=== PATIENT | female | born 1970 | race Caucasian/White ===

== ENCOUNTER 2018-12-12 17:14 | Inpatient (IN) | payer BC ==
[~2018-12-12] VITALS: Ht 162.6 cm; Wt 79.4 kg
[2018-12-12 20:30] VITALS: BP 155/89
--- NOTE | 2018-12-12 20:40 | NUR ---
Pt admitted during the noc with family at bedside, pt states feeling better at this time. Pt able to answer questions without complaints. Pt states some tingling in her hands. Pt states she has had this before and it is more group home. No further complaints noted. Will continue current plan of care.
[2018-12-12] MEDS: HYDROcodone/APAP 5/325MG 1 TAB TABLET PO PRN (22:06)
[2018-12-12 23:10] VITALS: BP 168/106
--- NOTE | 2018-12-13 | NUR ---
Pt called out and states having some dizziness, pt informed of possible complications and informed to not get up on her own and to get up slowly to help with her symptoms. After speaking to pt daughter came out and states pt still with complaints of dizziness and wants to know if there is any medication that she could take. Pt bp checked and pt with noted elevated bp, called Physician and informed of elevated bp and complaints of dizziness. Received ok orders for scheduled and prn medications. Pt informed and given medications. Pt states she is not used to taking medications and became emotional. Pt informed of possible complications of elevated bp and needing to take med to get bp down. Pt states she verbalizes understanding. Pt states she is not normally a sick person and does not understand what is going on. Pt informed of plan of care and verbalizes understanding.
[2018-12-13] MEDS: MECLIZINE HCL 12.5 MG TABLET. PO PRN ×2 (00:02→09:08)
[2018-12-13] MEDS: amLODIPine BESYLATE 5 MG TABLET PO SCH ×2 (00:02→09:07)
[2018-12-13 03:22] VITALS: BP 115/64
[2018-12-13 04:33] LABS: BASO % 0 % (0-3); EOS # 0.2 x10^3/uL (0.0-0.7); EOS % 2 % (0-3); HEMATOCRIT 39.2 % (36.0-47.0); HEMOGLOBIN 13.7 g/dL (12.0-15.5); LYMPH # 2.8 x10^3/uL (1.0-4.8); LYMPH % 40 % (24-48); MEAN CORPUSCULAR HEMOGLOBIN 31 pg (25-35); MEAN CORPUSCULAR HGB CONC 35 g/dL (31-37); MEAN CORPUSCULAR VOLUME 88 fL (79-100); MONO # 0.4 x10^3/uL (0.0-1.1); MONO % 6 % (0-9); NEUT # 3.5 x10^3/uL (1.8-7.7); NEUT % 51 % (31-73); PLATELET COUNT 221 x10^3/uL (140-400); RED BLOOD COUNT 4.45 x10^6/uL (3.50-5.40); RED CELL DISTRIBUTION WIDTH 12.9 % (11.5-14.5); WHITE BLOOD COUNT 6.9 x10^3/uL (4.0-11.0)
[2018-12-13 04:54] LABS: CALCIUM 8.9 mg/dL (8.5-10.1); CREATININE 0.8 mg/dL (0.6-1.0); GFR 76.9; POTASSIUM 3.7 mmol/L (3.5-5.1)
[2018-12-13 04:55] LABS: CHOLESTEROL/HDL RATIO 6.5
--- NOTE | 2018-12-13 05:48 | RAD ---
EXAM: CAROTID DOPPLER SONOGRAM. HISTORY: Dizziness, cerebrovascular accident. TECHNIQUE: Arteaga scale and color Doppler sonographic evaluation of the neck with spectral waveform analysis was performed and static images are submitted for review. FINDINGS: RIGHT: The peak systolic velocity within the common carotid artery is 58 cm/sec. The peak systolic velocity within the internal carotid artery is 59 cm/sec and the end diastolic velocity within the internal carotid artery is 35 cm/sec. The ICA/CCA ratio is 0.9. Grayscale images demonstrate no grayscale stenosis. LEFT: The peak systolic velocity within the common carotid artery is 63 cm/sec. The peak systolic velocity within the internal carotid artery is 82 cm/sec and the end diastolic velocity within the internal carotid artery is 40 cm/sec. The ICA/CCA ratio is 1.0. Grayscale images demonstrate no grayscale stenosis. There is antegrade flow within both vertebral arteries. IMPRESSION: 1. No evidence of hemodynamically significant stenosis. PQRS Compliance Statement - Stenosis calculations for CT, MR and conventional angiography are based upon measurement of the distal ICA diameter in accordance with the NASCET methodology. Stenosis calculations for carotid ultrasound studies are derived from validated velocity criteria which are known to correlate with the NASCET methodology. Electronically signed by: Mendy Perez MD (12/13/2018 5:45 AM) [facility]
[2018-12-13 07:00] VITALS: BP 125/65
[2018-12-13] MEDS ORDERED: ASPI-612 PO (07:31)
[2018-12-13] MEDS: HYDROcodone/APAP 5/325MG 1 TAB TABLET PO PRN (09:09)
[2018-12-13] MEDS ORDERED: ASPIRIN CHEWABLE 81 MG TABLET. PO SCH (09:30)
[2018-12-13] MEDS ORDERED: CONTRAST GIVEN. MC PRN (09:30)
[2018-12-13] MEDS ORDERED: IOHEXOL 300 MG/ML 100ML VIAL. IV ONE (09:30)
[2018-12-13 11:00] VITALS: BP 134/74
--- NOTE | 2018-12-13 11:43 | PDOC2 ---
NEUROLOGY CONSULT Date of Admission Date of Admission DATE: 12/13/18 TIME: 11:43 Reason for Consult Reason for Consult: Dizziness, possible stroke or transient ischemic attack Referring Physician Referring Physician: Dr. Kang Source Source: Chart review, Patient History of Present Illness History of Present Illness The patient is a 48-year-old right-handed female with 3 days of dizziness. She describes disequilibrium rather than true vertigo. She has not lost consciousness. She went to the [facility] emerged department last night where she was found to have hypertension, blood pressure of 170/100. She had CT of the head and neck soft tissues, essentially negative as reviewed below. In January of last year she [facility] for episode of tunnel vision, changing hearing, where she had MRI the brain, echocardiogram, and carotid Doppler studies. I saw the patient in the office on 04/07/18 and told her that most likely this was a migraine phenomenon. I told her that I would look over the records from [facility] and call her back. I did receive the records, and all testing was negative, and they also told her that this was migraine phenomenon versus hypertensive encephalopathy. The patient hung up on my medical device sales consultant when she told her this good news and did not return. Indeed, the patient does have a history of migraine headaches. She had a rather severe headache last night albeit related possibly to the hypertension. She is feeling better now. It was decided to transfer to this hospital from [facility] to obtain an MRI. Past Medical History Cardiovascular: HTN, Other (deep venous thrombosis) CENTRAL NERVOUS SYSTEM: Migraine GI: Constipation Psych: Anxiety, Depression Past Surgical History Past Surgical History: Cholecystectomy, Hysterectomy, Other (Thyroidectomy, parathyroidectomy, bladder suspension) Family History Family History: Cancer, Hypertension Social History Social History , no tobacco or alcohol Current Medications Current Medications Current Medications Acetaminophen/ Hydrocodone Bitart (Lortab 5/325) 1 tab PRN Q4HRS PRN PO MODERATE PAIN 4-6 Last administered on 12/13/18at 09:10; Start 12/12/18 at 21:30 Meclizine HCl (Antivert) 25 mg PRN Q6HRS PRN PO DIZZINESS Last administered on 12/13/18at 09:10; Start 12/13/18 at 00:00 Amlodipine Besylate (Norvasc) 5 mg DAILY PO Last administered on 12/13/18at 09:10; Start 12/13/18 at 00:00 Aspirin (Children'S Aspirin) 81 mg DAILYWBKFT PO Last administered on 12/13/18at 09:10; Start 12/13/18 at 09:30 Iohexol (Omnipaque 300 Mg/ml) 75 ml 1X ONCE IV Last administered on 12/13/18at 10:18; Start 12/13/18 at 09:30; Stop 12/13/18 at 10:02; Status DC Info (CONTRAST GIVEN -- Rx MONITORING) 1 each PRN DAILY PRN MC SEE COMMENTS; Start 12/13/18 at 09:30; Stop 12/15/18 at 09:29 Lorazepam (Ativan Inj) 1 mg 1X ONCE IV ; Start 12/13/18 at 13:00; Stop 12/13/18 at 13:01 Active Scripts Active Reported Aspirin Ec (Aspirin) 81 Mg Tablet. 1 Tab PO DAILY Allergies Allergies: Coded Allergies: No Known Drug Allergies (Unverified , 12/12/18) ROS Review of System Negative for fever, chills, weight loss, shortness of breath, chest pain, indigestion, hematochezia, melena, and dysuria. Full 14-point review of systems is negative. Physical Exam Physical Examination General: Well-developed, well-nourished white female in no acute distress HEENT: Normocephalic and�atraumatic. Tympanic membranes clear.�Temporal arteries�pulsatile and nontender.� Neck: Supple without bruit, no meningismus� Musculoskeletal: Stability:�see neurologic. Gait exam:�see neurologic. Tone:�see neurologic.�Strength:�see neurologic.� Neurological: Mental Status:�intact, orientation, memory, attention span/concentration, language, fund of knowledge normal. Cranial Nerves:�Pupils equal and reactive to light, extraocular movements are�intact, visual alejandre are full to confrontation. Facial sensation is normal. There is no facial asymmetry. Vestibulo-ocular reflex is intact. Palate elevates and tongue protrudes in midline. All other cranial related problems are negative except as mentioned before.�Reflexes:�2+ and symmetric with flexor plantar responses. Motor:�5/5 strength with normal tone and bulk. Coordination:�Finger-nose finger and qhxc-ns-mzyo testing are normal. Rapid alternating movements and fine finger movements are intact. Gait:�Normal, including tandem. Sensory:�Normal pinprick, vibration, light touch, proprioception.� Vitals VITALS Vital Signs Date Time Temp Pulse Resp B/P (MAP) Pulse Ox O2 Delivery O2 Flow Rate FiO2 12/13/18 11:17 20 100 Room Air 12/13/18 11:00 98.4 82 134/74 (94) 98.4 Labs Labs Laboratory Tests Test 12/13/18 03:55 White Blood Count 6.9 x10^3/uL (4.0-11.0) Red Blood Count 4.45 x10^6/uL (3.50-5.40) Hemoglobin 13.7 g/dL (12.0-15.5) Hematocrit 39.2 % (36.0-47.0) Mean Corpuscular Volume 88 fL (79-100) Mean Corpuscular Hemoglobin 31 pg (25-35) Mean Corpuscular Hemoglobin Concent 35 g/dL (31-37) Red Cell Distribution Width 12.9 % (11.5-14.5) Platelet Count 221 x10^3/uL (140-400) Neutrophils (%) (Auto) 51 % (31-73) Lymphocytes (%) (Auto) 40 % (24-48) Monocytes (%) (Auto) 6 % (0-9) Eosinophils (%) (Auto) 2 % (0-3) Basophils (%) (Auto) 0 % (0-3) Neutrophils # (Auto) 3.5 x10^3/uL (1.8-7.7) Lymphocytes # (Auto) 2.8 x10^3/uL (1.0-4.8) Monocytes # (Auto) 0.4 x10^3/uL (0.0-1.1) Eosinophils # (Auto) 0.2 x10^3/uL (0.0-0.7) Basophils # (Auto) 0.0 x10^3/uL (0.0-0.2) Sodium Level 142 mmol/L (136-145) Potassium Level 3.7 mmol/L (3.5-5.1) Chloride Level 105 mmol/L (98-107) Carbon Dioxide Level 27 mmol/L (21-32) Anion Gap 10 (6-14) Blood Urea Nitrogen 10 mg/dL (7-20) Creatinine 0.8 mg/dL (0.6-1.0) Estimated GFR (Cockcroft-Gault) 76.9 Glucose Level 97 mg/dL (70-99) Calcium Level 8.9 mg/dL (8.5-10.1) Triglycerides Level 344 mg/dL (0-150) Cholesterol Level 260 mg/dL (0-200) LDL Cholesterol, Calculated 151 mg/dL (0-100) VLDL Cholesterol, Calculated 69 mg/dL (0-40) Non-HDL Cholesterol Calculated 220 mg/dL (0-129) HDL Cholesterol 40 mg/dL (40-60) Cholesterol/HDL Ratio 6.5 Laboratory Tests Test 12/13/18 03:55 White Blood Count 6.9 x10^3/uL (4.0-11.0) Red Blood Count 4.45 x10^6/uL (3.50-5.40) Hemoglobin 13.7 g/dL (12.0-15.5) Hematocrit 39.2 % (36.0-47.0) Mean Corpuscular Volume 88 fL (79-100) Mean Corpuscular Hemoglobin 31 pg (25-35) Mean Corpuscular Hemoglobin Concent 35 g/dL (31-37) Red Cell Distribution Width 12.9 % (11.5-14.5) Platelet Count 221 x10^3/uL (140-400) Neutrophils (%) (Auto) 51 % (31-73) Lymphocytes (%) (Auto) 40 % (24-48) Monocytes (%) (Auto) 6 % (0-9) Eosinophils (%) (Auto) 2 % (0-3) Basophils (%) (Auto) 0 % (0-3) Neutrophils # (Auto) 3.5 x10^3/uL (1.8-7.7) Lymphocytes # (Auto) 2.8 x10^3/uL (1.0-4.8) Monocytes # (Auto) 0.4 x10^3/uL (0.0-1.1) Eosinophils # (Auto) 0.2 x10^3/uL (0.0-0.7) Basophils # (Auto) 0.0 x10^3/uL (0.0-0.2) Sodium Level 142 mmol/L (136-145) Potassium Level 3.7 mmol/L (3.5-5.1) Chloride Level 105 mmol/L (98-107) Carbon Dioxide Level 27 mmol/L (21-32) Anion Gap 10 (6-14) Blood Urea Nitrogen 10 mg/dL (7-20) Creatinine 0.8 mg/dL (0.6-1.0) Estimated GFR (Cockcroft-Gault) 76.9 Glucose Level 97 mg/dL (70-99) Calcium Level 8.9 mg/dL (8.5-10.1) Triglycerides Level 344 mg/dL (0-150) Cholesterol Level 260 mg/dL (0-200) LDL Cholesterol, Calculated 151 mg/dL (0-100) VLDL Cholesterol, Calculated 69 mg/dL (0-40) Non-HDL Cholesterol Calculated 220 mg/dL (0-129) HDL Cholesterol 40 mg/dL (40-60) Cholesterol/HDL Ratio 6.5 Images Images CAROTID DOPPLER SONOGRAM. HISTORY: Dizziness, cerebrovascular accident. TECHNIQUE: Arteaga scale and color Doppler sonographic evaluation of the neck with spectral waveform analysis was performed and static images are submitted for review. FINDINGS: RIGHT: The peak systolic velocity within the common carotid artery is 58 cm/sec. The peak systolic velocity within the internal carotid artery is 59 cm/sec and the end diastolic velocity within the internal carotid artery is 35 cm/sec. The ICA/CCA ratio is 0.9. Grayscale images demonstrate no grayscale stenosis. LEFT: The peak systolic velocity within the common carotid artery is 63 cm/sec. The peak systolic velocity within the internal carotid artery is 82 cm/sec and the end diastolic velocity within the internal carotid artery is 40 cm/sec. The ICA/CCA ratio is 1.0. Grayscale images demonstrate no grayscale stenosis. There is antegrade flow within both vertebral arteries. IMPRESSION: 1. No evidence of hemodynamically significant stenosis. [facility] Head CT without contrast. HISTORY: Weakness and dizziness. TECHNIQUE: Computed tomographic images of the head were obtained without contrast. *One or more of the following individualized dose reduction techniques were utilized for this examination: 1. Automated exposure control. 2. Adjustment of the mA and/or kV according to patient size. 3. Use of iterative reconstruction technique. COMPARISON: None. FINDINGS: There is no acute or subacute extra-axial or intraparenchymal hemorrhage. There is no mass effect or midline shift. There is no hydrocephalus. There is a possible tiny chronic lacunar infarct within the left caudate nucleus. The rzlr-[id number]-[id number] matter differentiation pattern is intact. The visualized portions of the orbits, paranasal sinuses and mastoid air cells are unremarkable. No suspicious calvarial lesion is seen. IMPRESSION: 1. No acute intracranial finding. Note is made that MRI is more sensitive for acute infarction. 2. Possible tiny chronic lacunar infarct within the left caudate nucleus. [facility] CT SOFT TISSUE NECK W/CONTRAST History: Fullness anterior neck. Fever. Technique: CT imaging was performed of the neck soft tissues with contrast. Coronal and sagittal reconstructions were performed. Contrast: 75 mL Omnipaque 300 IV contrast. Exposure: One or more of the following individualized dose reduction techniques were utilized for this examination: 1. Automated exposure control 2. Adjustment of the mA and/or kV according to patient size 3. Use of iterative reconstruction technique. Comparison: None Findings: Normal appearance of the bilateral submandibular and parotid glands. Prior right thyroidectomy. No pathologic lymphadenopathy. Punctate 2 mm left apical nodule (series 2 image #60), likely benign. Recommend comparison with prior imaging studies. If patient is high risk recommend one-year follow-up. Imaged paranasal sinuses and mastoid air cells are clear. Imaged orbits and intracranial contents are unremarkable. Impression: 1. No acute pathology within the neck soft tissues. 2. Prior right thyroidectomy. 3. Punctate left apical pulmonary nodule, as described. Assessment/Plan Assessment/Plan Impression: Nonspecific disequilibrium, no findings on neurological exam, she did not have a stroke, she didn't have a transient ischemic attack, we are left with the same differential diagnosis as from last year, most likely a combination of migraine and hypertensive encephalopathy. Recommendations: CT angiogram MRI of the brain, which I switched to a non-contrast study. Aspirin 81 mg daily Treatment of hypertension per internal medicine Aim for discharge later today. I discussed with patient, we could consider migraine prophylaxis, but these episodes are occurring somewhat rarely, so best to hold off Follow-up with me or other neurologist as needed. Thank you for letting me help the patient care. JOEL VELAZQUEZ MD Dec 13, 2018 11:43
--- NOTE | 2018-12-13 11:54 | RAD ---
PQRS Compliance statement: One or more of the following individualized dose reduction techniques were utilized for this examination: 1. Automated exposure control. 2. Adjustment of the mA and/or kV according to patient size. 3. Use of iterative reconstruction technique. Indication:TIA, dizziness, neck pain. TECHNIQUE: CT angiogram of the head and neck with IV contrast with multiplanar MIP reformats. 3-D volume rendered postprocessing was performed. COMPARISON: None FINDINGS: The bilateral A1 and A2 segments of the ALISHA are patent. Bilateral M1, M2, M3 segments of the MCA are patent. Bilateral P1, P2, P3 segments of the MORPHOLOGY TEACHER are patent. Bilateral superior cerebellar arteries are patent. Bilateral AICA are patent. Right PICA seen and is patent. Left PICA not seen likely hypoplastic. Bilateral ophthalmic arteries are patent. Bilateral cavernous and petrous segments of the ICA are patent. Bilateral extracranial ICA and ECA are patent. Bilateral extracranial vertebral arteries are patent. Bilateral common carotid arteries are patent. Conventional arch anatomy. Visualized superior mediastinum within normal limits. The major dural venous sinuses are patent. Bilateral orbits are within normal limits. The nasopharynx, oropharynx and hypopharynx are within normal limits. No enlarged deep cervical adenopathy. Visualized lung are clear. Status post right thyroidectomy. No suspicious bony lesion. IMPRESSION: The major intracranial and neck arteries are patent. Electronically signed by: Justin Marie DO (12/13/2018 11:50 AM) [facility]
[2018-12-13] MEDS ORDERED: ACETAMINOPHEN 325 MG TABLET. PO PRN (12:15)
--- NOTE | 2018-12-13 12:44 | HP ---
ADMIT DATE: 12/12/2018 HISTORY OF PRESENT ILLNESS: The patient is a 48-year-old female patient who apparently was seen at [facility] with a complaint of feeling dizzy for several months, intermittently worse over the past 3 days, feels like my equilibrium is off. Not worsening with exertion. No head trauma. No weakness in the arms or the legs. She notes some subjective fever and chills, has not taken her temperature at home. Denied any nausea or vomiting. She feels fullness in the anterior portion of her neck. She had a right upper dental pain approximately 3 weeks ago without significant improvement. She was not started on any antibiotic at that time. She has not followed up with anyone since then. She has a history of TIA and she is currently on baby aspirin. She was apparently investigated at the Emergency Room. She had a CT scan of the soft tissue of the neck with contrast, which basically showed no acute pathology within the neck of soft tissue. She has prior right thyroidectomy, punctate left apical pulmonary nodule as described. Her CT scan of the head showed that the patient has no acute intracranial finding. Note is made that MRI is more sensitive, showed possible tiny chronic lacunar infarct within the left caudate nucleus and therefore, the patient was transferred to [facility] to do an MRI and to consult the Neurology for further evaluation and treatment. She does complain of neck pain, headache and some photophobia. PAST MEDICAL HISTORY: Significant for hyperlipidemia, hypertension, TIA, although she is not on any antihypertensive medication, does not take any cholesterol lowering agent. PAST SURGICAL HISTORY: Significant for partial thyroidectomy, parathyroidectomy, cholecystectomy, total abdominal hysterectomy without oophorectomy. She has also undergone colonoscopy twice before. ALLERGIES: She has no known drug allergies. MEDICATIONS: She is currently on baby aspirin 81 mg once a day. FAMILY HISTORY: Her mother at the age of 62 because of end-stage renal disease. Father still alive in his 70s and has coronary artery disease and apparently colon cancer. SOCIAL HISTORY: She is , has 7 daughters. She does not smoke, drink alcohol or use any recreational drugs. She owns her own business. REVIEW OF SYSTEMS: The patient denied any blurring of vision, cataract, glaucoma or macular degeneration. Denied any earache, tinnitus or sensorineural deafness. Denied any nosebleeds, stuffy nose or postnasal drip. Denied any sore throat, sore tongue, toothache, hoarseness of voice or difficulty swallowing. Denied any nausea, vomiting, diarrhea or constipation. She does have a tendency for constipation. Denied any hematemesis, melena or hematochezia. Denied any dysuria, frequency or hematuria. Denied any chest pain, shortness of breath, orthopnea, paroxysmal nocturnal dyspnea. Denied any cough, phlegm or hemoptysis. Did complain of dizziness and lightheadedness. PHYSICAL EXAMINATION: GENERAL: She was resting slightly propped up in bed, in no apparent respiratory distress. No pallor, jaundice, cyanosis or thyromegaly. No jugular venous distension. No limb edema. VITAL SIGNS: Her heart rate was 90, blood pressure was 151/85, temperature was 98, respiratory rate was 22 and oxygen saturation was 100% on room air. HEAD, EYES, EARS, NOSE AND THROAT: Normocephalic, atraumatic. NECK: Supple. HEART: Showed normal first and second heart sounds. No gallop, rub or murmur. CHEST: Clear to auscultation. No crepitation or rhonchi. ABDOMEN: Distended, soft, nontender. No guarding or rigidity. No organomegaly. All hernial orifice intact. Bowel sounds normal. NEUROLOGIC: She was awake, alert, responding appropriately. All cranial nerves intact. EXTREMITIES: She moves extremities without difficulty. She ambulates without assistance or assistive devices. LABORATORY DATA: Her lab work while at [facility] Emergency Room showed that her white cell count was 5700, hemoglobin 14, hematocrit 41, MCV 89 and platelet count 252,000. Her chemistry showed a serum sodium 140, potassium 4.4, chloride 105, bicarbonate 30, anion gap of 5, BUN 10, creatinine 0.8, estimated GFR was 77 mL per minute. Her glucose 131, calcium was 9.8. Total bilirubin, AST, ALT, alkaline phosphatase were normal. Total protein 7.8, albumin 4.3. Her prothrombin time was 9.3, INR was 0.9. Urinalysis showed the urine was yellow, clear with a pH of 6, specific gravity 1.015. The urine was negative for protein, glucose, and ketones. There was trace of blood, negative for nitrite, leukocyte esterase. There is 1-4 wbc's, very few bacteria. Her urine test was negative. She has had the CT scan of the soft tissue of the neck with contrast, which basically showed normal appearance of the bilateral submandibular and parotid glands, prior right thyroidectomy. No pathologic lymphadenopathy. She has punctate 2 mm left apical nodule, likely benign. Recommend comparison with prior imaging studies and imaged paranasal sinuses and mastoid air cells are clear. Imaged orbits and intracranial contents are unremarkable. The CT scan of the head showed that there is no acute or subacute extraaxial and intraparenchymal hemorrhage. There is no mass effect or midline shift. There is no hydrocephalus. There is a possible tiny chronic lacunar infarct in the left caudate nucleus. The martinez white matter differentiation pattern is intact. Visualized portion of the orbits, paranasal sinuses and mastoid air cells are unremarkable. No suspicious calvarial lesion is seen. The radiologist recommended doing an MRI. The patient was transferred to [facility] to consult the neurologist and to arrange for an MRI and further evaluation as deemed necessary. FRANCOIS MORALES MD DR: KIM/susan JOB#: [id number] / [id number]
--- NOTE | 2018-12-13 13:56 | RAD ---
EXAM: Brain MRI without contrast. HISTORY: Transient ischemic attack. TECHNIQUE: Multiplanar, multisequence magnetic resonance imaging of the brain was performed without contrast. COMPARISON: CT angiogram of the head obtained on the same date. FINDINGS: There is no restricted diffusion to suggest acute or subacute infarction. There is no susceptibility effect to suggest hemorrhage. There is no mass effect or midline shift. There is no hydrocephalus. There are few nonspecific foci of T2/FLAIR hyperintensity within the cerebral white matter. There is associated chronic lacunar infarct along the superior left caudate nucleus. The orbits, paranasal sinuses mastoid air cells are unremarkable. There are normal flow voids within the cerebral vessels. No calvarial lesion is seen. IMPRESSION: 1. No acute intracranial finding. 2. Scattered foci of signal change within the cerebral white matter. This is a nonspecific finding which is most commonly due to chronic small vessel disease. Given the patient age, the possibility of foci of signal change due to chronic demyelination is not excluded. 3. Suspected chronic lacunar infarct along the superior left caudate nucleus. Electronically signed by: Opal Bates MD (12/13/2018 1:53 PM) [place] [id number]
[2018-12-13 15:00] VITALS: BP 123/57
[2018-12-13] MEDS ORDERED: ATOR10TA PO (16:59)
[2018-12-13] MEDS ORDERED: AMLO5TAB10 PO (16:59)
[2018-12-13] MEDS ORDERED: MECL25TA3 PO (17:01)
--- NOTE | 2018-12-13 18:22 | NUR ---
Discharge teaching provided written and verbal to pt,understanding verbalized. Dismissed to home with all belongings accompanied by her .Transported to exit per w/c @ 3000.
== END 2018-12-13 18:20 | disposition home or self-care (01) | DRG 103 ==
LOC: 6 SOUTH 18:11 → UNDOADMIN 18:11 → 6 SOUTH 20:29
PROVIDERS: ADMIT Internal Medicine; ATTEND Internal Medicine
DX: G43.909 Migraine, unspecified, not intractable, without status migrainosus (principal); I67.4 Hypertensive encephalopathy; E78.5 Hyperlipidemia, unspecified; E89.0 Postprocedural hypothyroidism; I10 Essential (primary) hypertension; F32.9 Major depressive disorder, single episode, unspecified; F41.9 Anxiety disorder, unspecified; Z90.721 Acquired absence of ovaries, unilateral; Z79.82 Long term (current) use of aspirin; Z80.0 Family history of malignant neoplasm of digestive organs; Z82.49 Family history of ischemic heart disease and other diseases of the circulatory system; Z86.73 Personal history of transient ischemic attack (TIA), and cerebral infarction without residual deficits; Z90.710 Acquired absence of both cervix and uterus; Z90.49 Acquired absence of other specified parts of digestive tract
CPT/HCPCS: 36415; 70496; 70498; 70551; 80048; 80061; 85025; 93880; J2060; J8597; Q9967; G0378